=== PATIENT | female | born 1985 | race Caucasian/White ===

== ENCOUNTER 2019-06-01 17:42 | Emergency (ER) | payer SELFPAY ==
[2019-06-01 17:57] VITALS: BP 136/84; PULSE 95; RESP 16; TEMP 36.3; O2SAT 100
--- NOTE | 2019-06-01 18:09 | ED.GENADULT ---
HPI - General Adult General Chief complaint: Urogenital-Female Stated complaint: UTI Time Seen by Provider: 06/01/19 18:09 Source: patient and RN notes reviewed Mode of arrival: ambulatory Limitations: no limitations History of Present Illness HPI narrative: 34-year-old female presents with urinary complaints for the past 3 days. Dysuria consist of bladder spasms, burning, frequency, and urgency.? Azo without relief.? History of UTI's. Complains of low-grade fevers, highest 99.9F temporal without chills. No significant pelvic pain. No vaginal discharge.? No concerns for STDs. Exacerbating factors urinating.? Denies hematuria or vaginal bleeding. Denies being , LMP 1 week ago and on control.? No flank pain. Denies nausea, vomiting, and abdominal pain.? Tolerating liquids well.? Remains active. Some parts of this dictation were generated by voice recognition software and may contain typographical and/or grammatical inaccuracies. Related Data Home Medications Medication Instructions Recorded Confirmed norgestimate-ethinyl estradiol 1 tablet DAILY 06/01/19 06/01/19 [Tri-Sprintec (28)] Allergies Allergy/AdvReac Type Severity Reaction Status Date / Time No Known Allergies Allergy Mild Verified 06/01/19 17:47 Review of Systems Review of Systems: Narrative: CONSTITUTIONAL: Complains of fever. Denies chills, sweats. EYES: Denies visual changes, redness, discharge. ENT: Denies rhinorrhea, congestion, sore throat, otalgia. CARDIOVASCULAR: Denies chest pain, palpitations, edema. RESPIRATORY: Denies dyspnea, wheezing, cough. GASTROINTESTINAL: Denies abdominal pain, nausea, vomiting, diarrhea. GENITOURINARY: Complains of dysuria (bladder spasms, burning, frequency, and urgency). Denies hematuria, abnormal discharge. SKIN: Denies rash or itching. MUSCULOSKELETAL: Denies acute back pain, joint pain, or myalgia. NEUROLOGIC: Denies numbness or focal weakness. PSYCHIATRIC: Denies anxiety or depression. All systems reviewed & are unremarkable except as noted in HPI and below. [facility] Past Medical History Medical History Abnormal Pap smear of cervix Urinary tract bacterial infections Surgical History Surgical History History of loop electrosurgical excision procedure (LEEP) Family History Family History Father Cancer Mother Hypertension Social History Social History (Updated 06/01/19 @ 18:48 by MARVIN Saeed) Smoking packs per day: 1 Smoking cigarettes per day: 20.0 Years smoked: 20 Smoking pack-years: 20.00 Smoking status: Current every day smoker Tobacco type: cigarettes Second hand tobacco smoke exposure: Yes Alcohol intake: never Substance use: never Living arrangements: with family Occupation/Education: occupation Gender identity (if verbalized by the patient): Female Comments At time of signature, agree with nurse past medical, surgical, social, and family history.? There is no relevant family history pertinent to the presenting complaint. Exam Narrative: Exam Narrative: GENERAL: This is a well-nourished, well-developed patient, in no apparent distress.? Talks in full sentences and ambulates with steady gait without dyspnea. HEAD: normocephalic, atraumatic. EYES: PERRL. Sclera clear/white. Vision is grossly intact. CARDIOVASCULAR: Regular rate and rhythm without murmurs, gallops, or rubs. RESPIRATORY: Clear to auscultation. Breath sounds equal bilaterally. No wheezes, rales, or rhonchi.? GASTROINTESTINAL: Abdomen soft, Mild suprapubic tenderness with palpation, nondistended. Bowel sounds are active. No hepato-splenomegaly, or palpable masses. No guarding. SKIN: warm, intact with no suspicious lesions or rash, No Purpura or Ecchymosis, good texture and turgor. NEURO: awake, alert, and orient
== END 2019-06-01 18:30 | disposition home or self-care (01) ==
PROVIDERS: Emergency Provider Nurse Practitioner Family; PCP Emergency Medicine
DX: N39.0 Urinary tract infection, site not specified (principal); F17.210 Nicotine dependence, cigarettes, uncomplicated
CPT/HCPCS: 81003; 87077; 87086; 87088; 87186; 99203; G0463